=== PATIENT | female | born 1975 | race Caucasian/White ===

== ENCOUNTER 2017-12-23 17:18 | Emergency (ER) | payer OTHER ==
[~2017-12-23] VITALS: Ht 160 cm; Wt 89.4 kg
[~2017-12-23 17:18] MED LIST: ACET325 PO; AZIT250 PO; CEPH500 PO; Cleocin HCl300 MG PO; ESTROGEN; HYDACE5 PO; HYDGUAL120 PO; IBUP800 PO; MULVITMINE PO; NAPR220; NAPR550 PO; Naprosyn500 MG PO; ORACON PO; OXYACE5T PO; PENVK500 PO; PRED20 PO; RXNAPNA550 PO; SERT50; SULTRIDS PO; TRIA55OI
[2017-12-23] MEDS ORDERED: Bactrim Ds Tab1 EACH PO (18:29)
== END 2017-12-23 18:40 | disposition home or self-care (01) ==
LOC: ER 17:18
DX: L03.115 Cellulitis of right lower limb (principal); Z88.0 Allergy status to penicillin; F17.200 Nicotine dependence, unspecified, uncomplicated

== ENCOUNTER → 2018-11-12 | Outpatient (CLI) | payer SELFPAY ==
[~2018-11-12] MED LIST changes: +Bactrim Ds Tab1 EACH PO
== END | disposition home or self-care (01) ==
LOC: LAB SHORT 17:57 → LAB EV 17:57
DX: L02.92 Furuncle, unspecified (principal)
CPT/HCPCS: 87070; 87075; 87077; 87147; 87186; 87205

== ENCOUNTER → 2019-05-27 | Outpatient (CLI) | payer OTHER | END | disposition home or self-care (01) | LOC: LAB SHORT 15:28 → LAB EV 15:28 | DX: L02.02 Furuncle of face (principal) | CPT/HCPCS: 87070; 87075; 87077; 87147; 87186; 87205 ==

== ENCOUNTER → 2022-02-07 | Outpatient (CLI) | payer OTHER ==
[2022-02-09 10:09] LABS: HPV 16 Negative (Negative); HPV 18 Negative (Negative); HPV OTHER HR TYPES Negative (Negative)
== END | disposition home or self-care (01) ==
LOC: LAB SHORT 15:33 → LAB 15:33
PROVIDERS: Obstetrics & Gynecology
DX: Z01.419 Encounter for gynecological examination (general) (routine) without abnormal findings (principal)
CPT/HCPCS: 87624; G0123

== ENCOUNTER 2022-10-10 06:07 | Day surgery (SDC) | payer OTHER ==
[~2022-10-10] VITALS: Ht 160 cm; Wt 97.9 kg
[~2022-10-10 06:07] MED LIST changes: +ALBU90OI INH
--- NOTE | 2022-10-10 07:27 | NUR ---
PRE SURGERY NOTE Ambulatory in Day Surgery Surgical site prepped with 2% Chlorhexidine cloth wipe. History, Chart, Medications and Allergies reviewed before start of procedure.Lungs clear T/O to Auscultation. Patient confirms NPO status and agrees with scheduled surgery. Pre-Op teaching done. Pt verbalizes understanding. Patient States Post-Procedure ride home has been arranged.
--- NOTE | 2022-10-10 11:04 | NUR ---
ARRIVAL TO ROOM 214 PT ARRIVED TO ROOM 214 FROM PACU WITH HER AT BEDSIDE. TRANSFERRED TO BED USING SLIDER SHEET, NO DMITRY PAD IN PLACE AND PT HAD MODERATE AMT OF BLOODY DRAINAGE IN HER VAGINAL AREA, THIS WAS CLEANED UP AND A DMITRY PAD WAS PLACED, PT EDUCATED ON VAGINAL DRAINAGE POST OP. SHE WAS ABLE TO GET UP AND AMBULATE TO THE BATHROOM APPROXIMATELY 15 MINUTES AFTER ARRIVING TO HER ROOM WITH MINIMAL ASSISTANCE, PT DID REPORT FEELING A LITTLE DIZZY. WHILE AMBULATING, DISCUSSED HAVING SOMEONE AMBULATE WITH HER UNTIL THIS RESOLVES. PT ALREADY TOLERATING PO JELLO AND CRACKERS. POST OP VITALS STARTED, WILL CTM
[2022-10-10] MEDS ORDERED: OXYC5 PO (14:41)
--- NOTE | 2022-10-10 15:14 | NUR ---
DISCHARGE SUMMARY PODO R OOPHRECTOMY/SALPIGECTOMY, A/OX4, VSS, TOLERATING PO, PAIN WELL MANAGED, AMBULATING WITH MINIMAL STANDBY ASSISTANCE, VOIDING. PT CAME TO THE FLOOR FROM PACU WITH [address], BOTH WERE PULLED JUST AFTER ADMINSTRATION OF TORADOL @ 1459. DISCUSSED DISCHARGE INSTRUCTIONS WITH THE PATIENT AND HER INCLUDING S/SX TO LOOK OUT FOR, HOME CARE, ACTIVITY AND ITS RESTRICTIONS ON LIFTING, MEDICATIONS, POST OP EDUCATION, AND FOLLOW UP APPOINTMENTS WHICH SHE REPORTED ALREADY HAVING HER FIRST FOLLOW UP APPOINTMENT SCHEDULED. PT HAD NO QUESTIONS AT TIME OF DISCHARGE, PT WAS ABLE TO GET DRESSED WITH THE HELP OF HER , ESCORTED OUT VIA WC TO PRIVATE AUTO TO GO HOME.
--- NOTE | 2022-10-12 16:33 | NUR ---
10/12/22 1633 Carolynn Lopez VERIFICATIONS, AUDITS
[2022-10-16] MEDS ORDERED: DOCU100 PO (11:37)
[2022-10-16] MEDS ORDERED: DULCOLAX400 MG/5 M PO (11:38)
[2022-10-16] MEDS ORDERED: IBUP400 PO (11:39)
[2022-10-16] MEDS ORDERED: BACTRIM DS TAB1 EAC6 PO (11:39)
== END 2022-10-10 15:14 | disposition home or self-care (01) ==
LOC: ORSCMMR 06:07 → ORD 07:30 → SURS 10:50 → ORSCMMR 15:14
PROVIDERS: Obstetrics & Gynecology
PROC: 0UT04ZZ Resection of Right Ovary, Percutaneous Endoscopic Approach (ICD-10-PCS; principal; 2022-10-10 07:30)
DX: N83.291 Other ovarian cyst, right side (principal); J45.909 Unspecified asthma, uncomplicated; F17.210 Nicotine dependence, cigarettes, uncomplicated; E66.9 Obesity, unspecified; Z68.38 Body mass index [BMI] 38.0-38.9, adult
CPT/HCPCS: 88108; 88305; 90686; A9270; J1100; J1885; J2250; J2405; J2704; J2795; J3010; J7120

== ENCOUNTER 2025-07-19 10:07 | Emergency (ER) | payer OTHER ==
[~2025-07-19] VITALS: Ht 160 cm; Wt 122.5 kg
[~2025-07-19 10:07] MED LIST changes: +BACTRIM DS TAB1 EAC6 PO; +DOCU100 PO; +DULCOLAX400 MG/5 M PO; +IBUP400 PO; +OXYC5 PO
[2025-07-19] MEDS ORDERED: NS 1,000 ML IV SCH (11:00)
[2025-07-19 11:39] LABS: BASOPHILS ABSOLUTE AUTO 0.05 K/mm3 (0.00-0.23); BASOPHILS PERCENT AUTO 1 % (0-2); EOSINOPHILS ABSOLUTE AUTO 0.13 K/mm3 (0.00-0.68); EOSINOPHILS PERCENT AUTO 2 % (0-6); Hematocrit 36.8 % (33.0-51.0); Hemoglobin 12.2 g/dL (11.5-16.0); IMMATURE GRAN ABSOLUTE AUTO 0.02 K/mm3 (0.00-0.10); IMMATURE GRAN PERCENT AUTO 0 % (0-1); LYMPHOCYTES ABSOLUTE AUTO 1.40 K/mm3 (0.84-5.20); LYMPHOCYTES PERCENT AUTO 23 % (21-46); MONOCYTES ABSOLUTE AUTO 0.30 K/mm3 (0.16-1.47); MONOCYTES PERCENT AUTO 5 % (4-13); Mean Corpuscular HGB Conc 33.2 g/dL (31.5-36.5); Mean Corpuscular Volume 86 fL (80-100); NEUTROPHILS ABSOLUTE AUTO 4.15 K/mm3 (1.96-9.15); NEUTROPHILS PERCENT AUTO 69 % (41-73); NRBC ABSOLUTE 0.00 K/mm3 (0.00-0.02); NRBC Auto 0.0 /100 WBC (0.0-0.2); RDW Coefficient Variation 13.3 % (11.7-14.2); RDW Standard Deviation 41.6 fL (35.1-46.3)
[2025-07-19 12:01] LABS: Platelet Count 286 K/mm3 (150-400)
[2025-07-19 12:07] LABS: Alanine Aminotransfer (ALT/SGP 46.0 U/L (12-78); Albumin, Blood 3.2 g/dL (3.4-5.0); Albumin/Globulin Ratio 0.8 (0.8-1.8); Anion Gap 9.0 mmol/L (3-11); Aspartate Aminotrans (AST/SGOT 31.0 U/L (12-37); Bilirubin, Total 0.3 mg/dL (0.1-1.0); Blood Urea Nitrogen 18.0 mg/dL (8-24); CO2, Blood 22.0 mmol/L (21-32); Calcium, Blood 8.6 mg/dL (8.5-10.1); Chloride, Blood 112.0 mmol/L (98-108); Creatinine, Blood 0.74 mg/dL (0.40-1.00); Globulin, Blood 3.8 g/dL (2.2-4.0); Glucose, Blood 127.0 mg/dL (70-99); Potassium, Blood 3.7 mmol/L (3.5-5.5); Sodium, Blood 139.0 mmol/L (136-145); Total Protein, Blood 7.0 g/dL (6.4-8.2)
[2025-07-19 12:27] LABS: Source, Urine Clean Catch
[2025-07-19 12:33] LABS: Bilirubin, Urine Neg (Neg); Color, Urine Red (P-Yellow); Glucose Qualitative, Urine Neg (Neg); Ketones, Urine Neg (Neg); Leukocyte Esterase, Urine 2+ (Neg); Protein, Urine 3+ (Neg); Specific Gravity, Urine 1.020 (1.003-1.022); Urobilinogen, Urine NORM (Normal)
[2025-07-19 12:39] LABS: Red Blood Cells, Urine TNTC /hpf (0-2); White Blood Cells, Urine TNTC /hpf (0-5)
[2025-07-19] MEDS ORDERED: FentaNYL Citrate 50 MCG/ML 2 ML Injection IV ONE (13:00)
[2025-07-19] MEDS ORDERED: OXAYDO5 M1 PO ×2 (15:35→15:36)
[2025-07-19 15:51] VITALS: BP 184/96
== END 2025-07-19 15:51 | disposition home or self-care (01) ==
LOC: ER 10:07
PROVIDERS: Student in an Organized Health Care Education/Training Program
DX: N93.9 Abnormal uterine and vaginal bleeding, unspecified (principal); F17.210 Nicotine dependence, cigarettes, uncomplicated; Z79.899 Other long term (current) drug therapy; Z88.0 Allergy status to penicillin; Z88.1 Allergy status to other antibiotic agents
CPT/HCPCS: 76830; 76856; 80053; 81001; 83690; 85025; 86850; 86900; 86901; 87086; 93005; 93010; 96361; 96374; 99284-25; J3010; J7030